=== PATIENT | female | born 1980 | race Caucasian/White ===

== ENCOUNTER → 2019-08-06 | Outpatient (CLI) | payer SELFPAY ==
[2019-08-10 09:09] LABS: HBSAG SCREEN Negative (Negative); HEP A AB, IGM Negative (Negative); HEP B CORE AB, IGM Negative (Negative); HEP C VIRUS AB <0.1 s/co ratio (0.0-0.9); HIV SCREEN 4TH GENERATION WRFX Non Reactive (Non Reactive)
[2019-08-11 08:09] LABS: HSV-2 IGG SUPPLEMENTAL TEST Positive (Negative)
[2019-08-12 08:10] LABS: TREPONEMA PALLIDUM ANTIBODIES Non Reactive (Non Reactive)
[2019-08-12 09:09] LABS: CHLAMYDIA TRACHOMATIS, NAA Negative (Negative); NEISSERIA GONORRHOEAE, NAA Negative (Negative)
== END ==
LOC: FB.CLBR 14:52
PROVIDERS: ATTEND Nurse Practitioner Family
DX: N89.8 Other specified noninflammatory disorders of vagina (principal); Z20.2 Contact with and (suspected) exposure to infections with a predominantly sexual mode of transmission
CPT/HCPCS: 36415; 80074; 86593; 86695; 86696; 86780; 87210; 87389; 87491; 87591

== ENCOUNTER 2020-04-03 09:06 | Day surgery (SDC) | payer BC, OTHER ==
[~2020-04-03 09:06] MED LIST: Lactated Ringers 1,000 ML IV SCH; Sodium Chloride 0.9% 10 ML Syringe FLUSH PRN
[2020-04-03] MEDS ORDERED: Lidocaine 2% 5 ML SDV INJECT ONE (09:07)
[2020-04-03] MEDS ORDERED: Propofol 200 MG/20 ML SDV IV ONE (09:07)
--- NOTE | 2020-04-03 10:53 | PCM.PN ---
- General Info Date of Service: 04/03/20 - Review of Systems Systems Review Comment:: 39 y/o female with history of dysphagia which is worsening here for EGD. She is medically stable to proceed. Her recent H and P is reviewed and no significant changes are noted. I have discussed the proposed EGD with possible dilation and biopsy with the patient. Risks such as but not limited to bleeding and GI injur discussed. She agrees to proceed. - Patient Data Vitals - Most Recent: Last Vital Signs Temp 98.5 F 04/03/20 09:42 Pulse 85 04/03/20 09:42 Resp 16 04/03/20 09:42 BP 116/78 04/03/20 09:42 Pulse Ox 96 04/03/20 09:42 Weight - Most Recent: 223 lb Lab Results Last 24 Hours: Laboratory Results - last 24 hr 04/03/20 04/03/20 Range/Units 09:00 09:35 Urine HCG, Qual Negative (NEGATIVE) SARS Virus RNA (PCR) Negative (NEGATIVE) Med Orders - Current: Current Medications Lactated Ringer's (Ringers, Lactated) 1,000 mls @ 125 mls/hr IV ASDIRECTED [facility] Last Admin: 04/03/20 10:13 Dose: 125 mls/hr Documented by: Sodium Chloride (Saline Flush) 10 ml FLUSH ASDIRECTED PRN PRN Reason: Keep Vein Open Sepsis Event Note - Focused Exam Vital Signs: Vital Signs Temp Pulse Resp BP Pulse Ox 04/03/20 09:42 98.5 F 85 16 116/78 96 Date Exam was Performed: 04/03/20 Time Exam was Performed: 10:50 - Problem List Review Problem List Initiated/Reviewed/Updated: Yes - My Orders Last 24 Hours: My Active Orders 04/03/20 Breakfast Nothing Per Oral Diet [DIET] 04/03/20 09:00 Patient Status [ADT] Routine Patient to Empty Bladder [RC] ASDIRECTED Verify Patient Consent Obtain [RC] ASDIRECTED Lactated Ringers [Ringers, Lactated] 1,000 ml IV ASDIRECTED Sodium Chloride 0.9% [Saline Flush] 10 ml FLUSH ASDIRECTED PRN Peripheral IV Insertion Adult [OM.PC] Routine - Assessment Assessment:: Dysphagia - Plan Plan:: EGD
--- NOTE | 2020-04-03 11:36 | PCM.OPNOTE ---
- General Post-Op/Procedure Note Date of Surgery/Procedure: 04/03/20 Operative Procedure(s): EGD with TTS Balloon Esophageal Dilation Findings: Single benign appearing moderate esophageal stricture at GE Jct. Pre Op Diagnosis: Dysphagia Post-Op Diagnosis: Esophageal Stricture Anesthesia Technique: MAC Primary Surgeon: Nikita Lerner Pathology: none EBL in mLs: 3 Complications: None Condition: Good
--- NOTE | 2020-04-03 12:22 | OR ---
DATE OF OPERATION: 04/03/2020 SURGEON: Nikita Lerner MD PREOPERATIVE DIAGNOSIS: Dysphagia. POSTOPERATIVE DIAGNOSIS: Esophageal stricture. OPERATION PERFORMED: Esophagogastroduodenoscopy with TTS balloon esophageal dilation. INDICATIONS FOR SURGERY: This 39-year-old female has a history of food lodging in her esophagus occasionally. Symptoms have been worsening and recently she had a bolus of steak which was caught in her esophagus and caused some dysphagia for about 3 days. She comes for EGD with possible dilation. FINDINGS: In the distal esophagus at the GE junction, there was a moderate esophageal stenosis. This appears benign with no intrinsic or extrinsic mass effect. Inflammation is minimal, although there is some irritation in the distal esophagus consistent with history of a food bolus. The stomach mucosa as well as the duodenal mucosa otherwise appeared normal. PROCEDURE IN DETAIL: The patient was taken to the procedure room. She was given intravenous sedation, and with her in the left lateral decubitus position, the Olympus gastroscope was advanced through a mouth guard into the oral cavity. Under direct visualization, this was carefully advanced down into the esophagus and then slowly advanced down through the esophagus, stomach, and duodenum where examination to the third portion was performed. After examining the duodenum, the scope was withdrawn back into the stomach, where full examination including retroflexed examination of the fundus was performed. The GE junction was then carefully examined with findings as noted above. The 8 x 18 mm dilating balloon was then passed through the scope and positioned. Three successive dilations were then performed of gradually increasing size up to a final dilation of 54 Amharic. The dilated areas carefully examined and mild to moderate amount of heme was noted. The stricture appeared to be dilated with this process and there was no indication of any esophageal or gastric injury. With no sign of complication, the scope was removed, and the patient was then taken from the procedure room in satisfactory condition. ESTIMATED BLOOD LOSS: 3 mL. COMPLICATIONS: None. PROGNOSIS: Good. /[id number] RAMONA/NICHELLE
== END 2020-04-03 12:30 | disposition home or self-care (01) ==
LOC: FB.SDS 09:06
PROVIDERS: ATTEND Surgery
DX: K22.2 Esophageal obstruction (principal); F32.9 Major depressive disorder, single episode, unspecified; K21.9 Gastro-esophageal reflux disease without esophagitis; Z11.59 Encounter for screening for other viral diseases; Z87.891 Personal history of nicotine dependence
CPT/HCPCS: 00731-QZ; 81025; C1726; J2001; J2704; J7120; U0002